=== PATIENT | female | born 1985 | race Two or more races ===

== ENCOUNTER 2023-04-09 23:30 | Emergency (ER) | payer OTHER ==
[2023-04-09 23:49] VITALS: BP 104/74; PULSE 72; RESP 16; TEMP 98; BMI 24.8
[2023-04-10] MEDS ORDERED: predniSONE 20 MG TABLET (UD) PO ONE (00:06)
[2023-04-10] MEDS ORDERED: KETOROLAC TROMETHAMINE 60 MG/2 ML VIAL IM ONE (00:06)
[2023-04-10] MEDS ORDERED: CYCLOBENZAPRINE HCL 10 MG TABLET (FP) PO ONE (00:07)
[2023-04-10] MEDS ORDERED: CYCLOBENZAPRINE HCL 5 MG TABLET ONE (00:10)
[2023-04-10] MEDS ORDERED: KETOROLAC TROMETHAMINE 60 MG/2 ML VIAL ONE (00:10)
[2023-04-10] MEDS ORDERED: predniSONE 20 MG TABLET (UD) ONE (00:10)
== END 2023-04-10 00:18 | disposition home or self-care (01) ==
LOC: FER 23:30
PROC: 3E0233Z Introduction of Anti-inflammatory into Muscle, Percutaneous Approach (ICD-10-PCS; principal; 2023-04-10)
DX: S16.1XXA Strain of muscle, fascia and tendon at neck level, initial encounter (principal); M54.6 Pain in thoracic spine; M54.2 Cervicalgia; R51.9 Headache, unspecified; X58.XXXA Exposure to other specified factors, initial encounter
CPT/HCPCS: 99284-25

== ENCOUNTER 2023-07-25 14:26 | Emergency (ER) | payer OTHER ==
[2023-07-25 14:50] VITALS: BP 112/79; PULSE 91; RESP 16; TEMP 98.3; BMI 23.4
[2023-07-25] MEDS ORDERED: LIDOCAINE 5% TOPICAL PATCH ONE (14:52)
[2023-07-25] MEDS ORDERED: KETOROLAC TROMETHAMINE 30 MG/1 ML VIAL ONE (14:52)
[2023-07-25] MEDS: KETOROLAC TROMETHAMINE 30 MG/1 ML VIAL IM ONE (14:57)
[2023-07-25] MEDS: LIDOCAINE 5% TOPICAL PATCH TP ONE (14:59)
[2023-07-25] MEDS ORDERED: LIDOCAINE PATCH REMOVAL MC SCH (22:00)
== END 2023-07-25 18:07 | disposition home or self-care (01) ==
LOC: FER 14:26
PROC: 3E0233Z Introduction of Anti-inflammatory into Muscle, Percutaneous Approach (ICD-10-PCS; principal; 2023-07-25)
DX: S06.0X0A Concussion without loss of consciousness, initial encounter (principal); S00.83XA Contusion of other part of head, initial encounter; Y04.8XXA Assault by other bodily force, initial encounter
CPT/HCPCS: 70450-TC; 70486-TC; 72125-TC; 73070-TC-LT-FY; 99284-25